=== PATIENT | female | born 1960 | race Caucasian/White ===

== ENCOUNTER 2021-11-03 15:18 | Emergency (ER) | payer OTHER, SELFPAY ==
[2021-11-03 16:00] VITALS: BP 134/60; PULSE 45; RESP 17; TEMP 36.1; O2SAT 99; BMI 24.5
--- NOTE | 2021-11-03 17:34 | ED.LOWEXIN ---
HPI - Extremity Injury (Lower) <DEMIAN QuinnP - Last Filed: 11/03/21 18:04> General Chief Complaint: Extremity Injury, Lower Stated Complaint: numb foot right/neuropathy poss DVT Time Seen by Provider: 11/03/21 17:34 Source: patient and family Mode of arrival: Ambulatory History of Present Illness HPI Narrative: This is a 61-year-old female who has a history of type 2 diabetes, most recently her A1c was over 10, recently started on Lantus, NovoLog, and Trulicity for glycemic control, also has a history of bipolar and is adequately controlled on medications, she states that she sees Dr. Fabian from Psychiatry. Patient is pleasant, states that this morning she had numbness in her right foot, was concerned it was neuropathy, states that it took approximately 30 minutes but then her symptoms fully went away. She states that she used to have neuropathy in her extremities but it went away for a long period of time, the 1st time it came back was this morning. She declines any symptoms currently, denies any pain, denies any weakness with dorsiflexion or plantar extension, is able to wiggle her toes, denies any wounds on her feet, denies any significant hyperglycemia recently. Related Data Home Medications Medication Instructions Recorded Confirmed aspirin 81 mg tablet,delayed 81 mg PO DAILY 05/10/19 08/10/21 release dulaglutide 1.5 mg/0.5 mL mg SUBCUT QWEEK ml 05/10/19 08/10/21 subcutaneous pen injector insulin glargine 100 unit/mL (3 60 unit SUBCUT BID ml 05/10/19 08/10/21 mL) subcutaneous pen (Lantus Solostar U-100 Insulin) Previous Rx's Medication Instructions Recorded eszopiclone 2 mg tablet 2 mg PO BEDTIME PRN #10 tab 06/19/21 citalopram 20 mg tablet 20 mg PO DAILY #30 tab 08/10/21 lithium carbonate 450 mg 450 mg PO BEDTIME #30 tab 08/10/21 tablet,extended release risperidone 3 mg tablet 3 mg PO BEDTIME #30 tab 08/10/21 ziprasidone HCl 60 mg capsule 60 mg PO QPM #30 cap 08/10/21 Allergies Allergy/AdvReac Type Severity Reaction Status Date / Time haloperidol [From Haldol] AdvReac Intermediate Headache Verified 08/10/21 16:05 lisinopril AdvReac Intermediate cough Verified 08/10/21 16:05 zolpidem [From Ambien] AdvReac Intermediate nightmares Verified 08/10/21 16:05 hydroxyzine AdvReac Mild activation Verified 08/10/21 16:05 meperidine [From Demerol] AdvReac Mild dizziness, Verified 08/10/21 16:05 nausea, vomitting Review of Systems <MANUEL Quinn - Last Filed: 11/03/21 18:04> Review of Systems Narrative: General: denies fever, chills Head/Neck: denies headache, neck pain Eyes: denies visual changes, eye pain Cardio: denies chest pain, palpitations Respiratory: denies shortness of breath, cough GI: denies abdominal pain, nausea, vomiting, or diarrhea : denies dysuria, hematuria or flank pain MSK: denies new joint pain, muscle weakness or swelling Skin: denies rash, itching or wound Neuro: denies numbness, tingling, dizziness Patient History <MANUEL Quinn - Last Filed: 11/03/21 18:04> Medical History Bipolar 1 disorder, depressed, mild Bipolar disorder, current episode manic severe with psychotic features Drug-induced long QT syndrome Type 2 diabetes mellitus Social History Smoking Status: Former smoker Smoking Status: Former smoker Substance Use Type: does not use Exam <MANUEL Quinn - Last Filed: 11/03/21 18:04> Narrative Exam Narrative: Independently reviewed vitals signs and nursing notes. General: cooperative, comfortable, in no acute distress, well groomed Head: atraumatic, symmetrical facial expressions Neck: supple Eyes: equal round and reactive, EOMI, conjunctiva normal Nose: nares patent, no rhinorrhea Mouth/Throat: moist mucus membranes Cardiovascular: regular rate and rhythm, no peripheral edema, warm extremities Respiratory: normal effort, able to speak in complete sentences, no audible wheezing, stridor, or rales. No retractions or tachypnea. GI: abdomen soft, nontender to palpation, nondistended, no masses, no exquisite tenderness with exam, without guarding or rebound. MSK: moves all extremities, neurovascularly intact, no weakness, normal tone Skin: brisk capillary refill, no rash, no erythema, patient's feet are dry, toenails are slightly long, no open wounds, a small callus is present on the dorsum of her foot underneath her flip flops line, no open wound, excoriation, tenderness, or edema. Currently, patient does not endorse any numbness with palpation to the plantar surface of her foot in all areas. With palpation Neuro: normal speech and cognition, A&O x3 Psych: mental status is grossly normal, congruent mood, normal affect, pleasant and cooperative Initial Vital Signs Initial Vital Signs: Vital Signs Temperature 97 F L 11/03/21 16:00 Pulse Rate 45 L 11/03/21 16:00 Respiratory Rate 17 11/03/21 16:00 Blood Pressure 134/60 11/03/21 16:00 Pulse Oximetry 99 11/03/21 16:00 <Jim Villa DO - Last Filed: 11/03/21 18:07> Initial Vital Signs Initial Vital Signs: Vital Signs Temperature 97 F L 11/03/21 16:00 Pulse Rate 45 L 11/03/21 16:00 Respiratory Rate 17 11/03/21 16:00 Blood Pressure 134/60 11/03/21 16:00 Pulse Oximetry 99 11/03/21 16:00 Course <MANUEL Quinn - Last Filed: 11/03/21 18:04> Vital Signs Vital signs: Vital Signs - 8 hr 11/03/21 16:00 11/03/21 17:55 Temperature 97 F L 97 F L Pulse Rate 45 L 80 Respiratory Rate 17 18 Blood Pressure 134/60 132/74 Pulse Oximetry 99 98 <Jim Villa DO - Last Filed: 11/03/21 18:07> Vital Signs Vital signs: Vital Signs - 8 hr 11/03/21 16:00 11/03/21 17:55 Temperature 97 F L 97 F L Pulse Rate 45 L 80 Respiratory Rate 17 18 Blood Pressure 134/60 132/74 Pulse Oximetry 99 98 MDM - Extremity Injury (Lower) <MANUEL Quinn - Last Filed: 06/04/22 18:04> MDM Narrative Medical decision making narrative: This is a 61-year-old female type 2 diabetic who is insulin-dependent and also on Trulicity who presents to the emergency department for concern about numbness in her right foot which happened this morning, and has since resolved. Patient also has a history of bipolar and is currently in remission, she is on multiple antipsychotics but is stable on her medications currently. Patient reports that her Hb A1c was over 10, she has since been started on Lantus, NovoLog, and Trulicity and she is checking her blood sugar every day, avoiding carbs, and trying to improve her glycemic control. Patient denies any numbness or neuropathy symptoms at this time, she denies any pain, she has an upcoming appointment with Dr. Small from Podiatry, states that she will follow up with him accordingly. Patient understands to follow-up with Dr. Small, continue check her blood sugar, she denies any symptoms at this time. Patient is appropriate and amenable to discharge home. Vital signs are stable on repeat examination is unremarkable. Patient has been informed of results. Patient has been given strict return to ER precautions for any new or worsening symptoms. Patient understands to follow up closely with outpatient providers as instructed. Patient understands plan and agrees to discharge home. All questions and concerns answered at this time. Discharge Plan Departure Patient Disposition: Home Clinical Impression: Type 2 diabetes mellitus with peripheral neuropathy Instructions: DI for Diabetic Neuropathy, DI for Peripheral Neuropathy Activity Restrictions/Additional Instructions: *You have been diagnosed with peripheral neuropathy most likely related to your diabetes. I am proud of you for starting to take good care of your elevated blood sugars, please continue to check her blood sugar at least 4 times a day and to keep your blood sugar within normal ranges, continue to avoid carbs as you transition to a new diet to help reduce your A1c. Please take your medications as prescribed, there are other medications that are used for neuropathy but since yours is intermittent it might not be as progressive. Please follow-up with Dr. Small at your scheduled podiatry appointment, please let him know about your neuropathy episode, keep track of this happens again. Thank you for trusting us with your care, return for any new or worsening conditions. *What to do: *Please continue to take your regular medications as directed. [ ] New medication prescriptions sent to your pharmacy: [ ] [ ] New medication written as a paper prescription [x ] No new medications given *Please follow up with your primary care provider in 2-3 days, call for an appointment. Let them know you were seen in the Emergency Department and that we asked that you be seen for follow-up. We will electronically transmit a record of today's note if your PCP is in our system *If you do not have a primary care provider please contact [phone] to establish care with one of the [facility] primary care providers. *Return to Emergency Department if you should have any new, worsening or concerning symptoms, such as [fever greater than 101F, chills, worsening pain, persistent vomiting or other bothersome symptoms] Prescriptions: No Action aspirin 81 mg tablet,delayed release (DR/EC) 81 mg PO DAILY 0RF Trulicity 1.5 mg/0.5 mL pen injector SUBCUT QWEEK 0RF Lantus Solostar U-100 Insulin 100 unit/mL (3 mL) insulin pen 60 unit SUBCUT BID 0RF citalopram 20 mg tablet 20 mg PO DAILY Qty: 30 5RF lithium carbonate 450 mg tablet extended release 450 mg PO BEDTIME Qty: 30 5RF risperidone 3 mg tablet 3 mg PO BEDTIME Qty: 30 5RF ziprasidone HCl 60 mg capsule 60 mg PO QPM Qty: 30 5RF eszopiclone 2 mg tablet 2 mg PO BEDTIME PRN (Reason: insomnia) Qty: 10 2RF Referrals: Jorge Small, G[facility] [Physician] - Visit Report Forms: Patient Portal/API <Jim Villa, DO - Last Filed: 11/03/21 18:07> [facility] ED [facility]ending [facility]: Dr Villa Co-Sign Statement: I was available for consultation during this patient's emergency department visit. This chart is signed by myself for administrative purposes only. I did not have direct contact with this patient during this visit. They were seen independently by the APC.
[2021-11-03 17:55] VITALS: BP 132/74; PULSE 80; RESP 18; TEMP 36.1; O2SAT 98
== END 2021-11-03 17:55 | disposition home or self-care (01) ==
PROVIDERS: Emergency Provider Nurse Practitioner Critical Care Medicine
DX: E11.42 Type 2 diabetes mellitus with diabetic polyneuropathy (principal); Z79.4 Long term (current) use of insulin
CPT/HCPCS: 99281

== ENCOUNTER 2022-01-16 10:37 | Emergency (ER) | payer OTHER, SELFPAY ==
[2022-01-16] VITALS (8 sets, daily range): BP systolic 123–161; BP diastolic 65–77; PULSE 58–73; RESP 20; TEMP 36.2; O2SAT 94–100; BMI 23.8
[2022-01-16 12:11] LABS: Add Manual Diff / Slide Review NO; Basophils Absolute Auto 0 /uL (0-100); Basophils Percent Auto 0.4 % (0-2); Eosinophils Absolute Auto 100 /uL (0-450); Eosinophils Percent Auto 1.3 % (2-4); Hematocrit 44.7 % (36-46); Hemoglobin 15.2 g/dL (12.0-16.0); Lymphocytes Absolute Auto 1000 /uL (1100-4500); Mean Corpuscular Hemoglobin 28.3 PG (26-34); Mean Corpuscular Volume 83.3 fL (80-100); Monocytes Absolute Auto 500 /uL (0-900); Monocytes Percent Auto 5.5 % (3-14); Neutrophils Absolute Auto 6600 /uL (1500-7000); Neutrophils Percent Auto 80.8 % (50-75); Platelet Count 163 X10^3/uL (150-400); Red Blood Cell Count 5.37 X10^6/uL (4.0-5.2); Red Cell Distribution Width 14.7 % (11.6-14.8); White Blood Cell Count 8.2 X10^3/uL (4.5-11.0)
[2022-01-16 12:19] LABS: Appearance Urine UA CLEAR; Bilirubin Urine UA NEGATIVE (NEGATIVE); Color Urine UA YELLOW; Glucose Urine UA 1+ g/dL (Negative); Ketones Urine UA TRACE (NEGATIVE); Leukocyte Esterase Urine UA NEGATIVE (NEGATIVE); Nitrite Urine UA NEGATIVE (Negative); Occult Blood Urine UA NEGATIVE (Negative); Protein Urine UA 2+ (Negative); Specific Gravity Urine UA 1.025 (1.000-1.035); Urobilinogen Urine UA 0.2 E.U./dL (0.2)
[2022-01-16 12:26] LABS: Alanine Aminotransferase 19 IU/L (<35); Albumin 4.6 g/dL (3.5-5.0); Albumin Globulin Ratio 1.4 (1.0-2.8); Alkaline Phosphatase 106 U/L (38-126); Aspartate Aminotransferase 23 IU/L (14-36); BUN Creatinine Ratio 33.3 (6-22); Bilirubin Total 0.5 mg/dL (0.2-1.3); Blood Urea Nitrogen 20 mg/dL (7-17); Calcium 9.4 mg/dL (8.4-10.2); Carbon Dioxide 25 mmol/L (22-32); Chloride 102 mmol/L (98-107); Estimated Glomerular Filt Rate > 60 mL/min (>60); Globulin 3.4 g/dL (1.7-4.1); Glucose 223 mg/dL (80-110); HEMOLYSIS < 15 (0-50); Lipase 140 U/L (23-300); Potassium 4.2 mmol/L (3.4-5.1); Sodium 137 mmol/L (137-145)
[2022-01-16 12:28] LABS: RBC Urine 0-1/HPF (0-5/HPF); Squamous Epithelial Cell Urine 0-1 /HPF (0-5/HPF); WBC Urine 1-5/HPF (0-5/HPF)
[2022-01-16 12:29] LABS: Bacteria Urine Occasional (0-1); Culture Indicated Urine Specimen Cultured; Mucus Urine 1+ (Negative)
--- NOTE | 2022-01-16 12:29 | ED_ITS ---
HPI - Abdominal Pain General Chief Complaint: Abdominal Pain Stated Complaint: Left side abd pain Time Seen by Provider: 01/16/22 11:47 Source: patient Mode of arrival: Family Vehicle History of Present Illness HPI narrative: Patient is a 61-year-old female history of diabetes bipolar presenting today with left lower quadrant pain. She said it started last night. No nausea vomiting or fever. She denies any flank pain. No prior history of diverticulitis. Onset (ago): day(s) Pain Consistency: constant Location: LLQ Severity: moderate Quality: stabbing Radiation: none Relieving factors: nothing Related Data Home Medications Medication Instructions Recorded Confirmed aspirin 81 mg tablet,delayed 81 mg PO DAILY 05/10/19 08/10/21 release dulaglutide 1.5 mg/0.5 mL mg SUBCUT QWEEK 05/10/19 08/10/21 subcutaneous pen injector insulin glargine 100 unit/mL (3 60 unit SUBCUT BID 05/10/19 08/10/21 mL) subcutaneous pen (Lantus Solostar U-100 Insulin) Previous Rx's Medication Instructions Recorded cephalexin 500 mg capsule 500 mg PO BID 3 days #6 caps 01/16/22 citalopram 20 mg tablet 20 mg PO DAILY 30 days #30 tabs 01/16/22 eszopiclone 2 mg tablet 2 mg PO BEDTIME PRN insomnia 30 01/16/22 days #10 tabs lithium carbonate 450 mg 450 mg PO BEDTIME 30 days #30 tabs 01/16/22 tablet,extended release risperidone 3 mg tablet 3 mg PO BEDTIME 30 days #30 tabs 01/16/22 ziprasidone HCl 60 mg capsule 60 mg PO QPM 30 days #30 caps 01/16/22 Allergies Allergy/AdvReac Type Severity Reaction Status Date / Time haloperidol [From Haldol] AdvReac Intermediate Headache Verified 01/16/22 10:58 lisinopril AdvReac Intermediate cough Verified 01/16/22 10:58 zolpidem [From Ambien] AdvReac Intermediate nightmares Verified 01/16/22 10:58 hydroxyzine AdvReac Mild activation Verified 01/16/22 10:58 meperidine [From Demerol] AdvReac Mild dizziness, Verified 01/16/22 10:58 nausea, vomitting Review of Systems Review of Systems Narrative: GENERAL: Denies chills, fatigue, malaise, fever, sweats, travel HEENT: Denies sinus pain, ear pain, sore throat, difficulty swallowing, neck pain RESPIRATORY: Denies dyspnea, cough, wheezing, hemoptysis, sputum. CARDIOVASCULAR: Denies chest pain, palpitations, orthopnea, edema GASTROINTESTINAL: See HPI : Denies dysuria, frequency, incontinence, hematuria, urinary retention, flank pain. MUSCULOSKELETAL: Denies weakness, joint pain, or bony pain SKIN: No rash, no erythema, no pruritus NEUROLOGIC: Denies weakness, dizziness, headache, numbness, change in speech, confusion PSYCHIATRIC: No concerning psychosocial issues. 12 point review of systems is negative except for those stated above and HPI Patient History Medical History Bipolar 1 disorder, depressed, mild Bipolar disorder, current episode manic severe with psychotic features Drug-induced long QT syndrome Type 2 diabetes mellitus Social History Smoking Status: Former smoker Smoking Status: Former smoker tobacco type: cigarettes alcohol intake frequency: 0-2 drinks per day Substance Use Type: does not use Exam Initial Vital Signs Initial Vital Signs: Vital Signs Temperature 97.2 F L 01/16/22 10:59 Pulse Rate 58 L 01/16/22 10:59 Respiratory Rate 20 01/16/22 10:59 Blood Pressure 142/67 H 01/16/22 10:59 Pulse Oximetry 99 01/16/22 10:59 Oxygen Delivery Method 01/16/22 10:59 GENERAL: Alert pleasant 61-year-old female and in no acute distress. HEENT: Head atraumatic,EOMI, pupils reactive, face symmetric, moist mucous membranes CARDIOVASCULAR: Regular rate and rhythm without murmurs, rubs or gallops. RESPIRATORY: Breath sounds equal bilaterally, no wheezes rales or rhonchi. ABDOMEN: Soft, left lower quadrant pain no guarding no rebound : No CVA tenderness EXTREMITIES: Normal range of motion, no clubbing or edema. Neurovascularly intact NEUROLOGICAL: Alert and oriented x4 SKIN: Warm, dry, no laceration, no petechiae, no rashes or lesions. Course Orders Ordered: ED Orders 01/16/22 12:31 CT abdomen pelvis wo con Stat 01/16/22 12:53 EKG-12 Lead Stat Discontinued Medications Ketorolac Tromethamine (Ketorolac 30 Mg/Ml Vial) 15 mg IV NOW ONE Stop: 01/16/22 13:05 Last Admin: 01/16/22 13:12 Dose: 15 mg Documented By: PIETRO Vital Signs Vital signs: Vital Signs - 8 hr 01/16/22 13:16 01/16/22 13:17 01/16/22 13:17 Pulse Rate 65 65 Blood Pressure 161/76 H Pulse Oximetry 94 99 01/16/22 13:30 01/16/22 13:30 Pulse Rate 73 Blood Pressure 156/77 H Pulse Oximetry 94 MDM - Abdominal Pain Lab Data Result diagrams: 01/16/22 12:03 01/16/22 12:03 Labs: Lab Results 01/16/22 01/16/22 01/16/22 Range/Units 12:03 12:03 12:08 WBC 8.2 (4.5-11.0) X10^3/uL RBC 5.37 H (4.0-5.2) X10^6/uL Hgb 15.2 (12.0-16.0) g/dL Hct 44.7 (36-46) % MCV 83.3 (80-100) fL MCH 28.3 (26-34) PG MCHC 34.0 (30-36) % RDW 14.7 (11.6-14.8) % Plt Count 163 (150-400) X10^3/uL Neut % (Auto) 80.8 H (50-75) % Lymph % (Auto) 12.0 L (25-40) % [place] % (Auto) 5.5 (3-14) % Eos % (Auto) 1.3 L (2-4) % Baso % (Auto) 0.4 (0-2) % Neut # (Auto) 6600 (9280-0856) /uL Lymph # (Auto) 1000 L (8296-9922) /uL [place] # (Auto) 500 (0-900) /uL Eos # (Auto) 100 (0-450) /uL Baso # (Auto) 0 (0-100) /uL Sodium 137 (137-145) mmol/L Potassium 4.2 (3.4-5.1) mmol/L Chloride 102 (98-107) mmol/L Carbon Dioxide 25 (22-32) mmol/L BUN 20 H (7-17) mg/dL Creatinine 0.60 (0.52-1.04) mg/dL Estimated GFR > 60 (>60) mL/min BUN/Creatinine Ratio 33.3 H (6-22) Glucose 223 H (80-110) mg/dL Calcium 9.4 (8.4-10.2) mg/dL Total Bilirubin 0.5 (0.2-1.3) mg/dL AST 23 (14-36) IU/L ALT 19 (<35) IU/L Alkaline Phosphatase 106 (38-126) U/L Total Protein 8.0 (6.3-8.2) g/dL Albumin 4.6 (3.5-5.0) g/dL Globulin 3.4 (1.7-4.1) g/dL Albumin/Globulin Ratio 1.4 (1.0-2.8) Lipase 140 (23-300) U/L Urine Color Yellow Urine Appearance Clear Urine pH 5.0 (4.5-8.0) Ur Specific [place] 1.025 (1.000-1.035) Urine Protein 2+ H (Negative) Urine Glucose (UA) 1+ H (Negative) g/dL Urine Ketones Trace H (NEGATIVE) Urine Occult Blood Negative (Negative) Urine Nitrate Negative (Negative) Urine Bilirubin Negative (NEGATIVE) Urine Urobilinogen 0.2 (0.2) E.U./dL Ur Leukocyte Esterase Negative (NEGATIVE) Urine RBC 0-1/hpf (0-5/HPF) Urine WBC 1-5/hpf (0-5/HPF) Ur Squamous Epith Cells 0-1 /hpf (0-5/HPF) Urine Bacteria Occasional (0-1) (None) Urine Mucus 1+ H (Negative) Ur Culture Indicated? Specimen cultured SARS-CoV-2 (PCR) (Negative) 01/16/22 Range/Units 12:08 WBC (4.5-11.0) X10^3/uL RBC (4.0-5.2) X10^6/uL Hgb (12.0-16.0) g/dL Hct (36-46) % MCV (80-100) fL MCH (26-34) PG MCHC (30-36) % RDW (11.6-14.8) % Plt Count (150-400) X10^3/uL Neut % (Auto) (50-75) % Lymph % (Auto) (25-40) % Hamb[place] % (Auto) (3-14) % Eos % (Auto) (2-4) % Baso % (Auto) (0-2) % Neut # (Auto) (6238-4098) /uL Lymph # (Auto) (3126-8048) /uL Hamblen # (Auto) (0-900) /uL Eos # (Auto) (0-450) /uL Baso # (Auto) (0-100) /uL Sodium (137-145) mmol/L Potassium (3.4-5.1) mmol/L Chloride (98-107) mmol/L Carbon Dioxide (22-32) mmol/L BUN (7-17) mg/dL Creatinine (0.52-1.04) mg/dL Estimated GFR (>60) mL/min BUN/Creatinine Ratio (6-22) Glucose (80-110) mg/dL Calcium (8.4-10.2) mg/dL Total Bilirubin (0.2-1.3) mg/dL AST (14-36) IU/L ALT (<35) IU/L Alkaline Phosphatase (38-126) U/L Total Protein (6.3-8.2) g/dL Albumin (3.5-5.0) g/dL Globulin (1.7-4.1) g/dL Albumin/Globulin Ratio (1.0-2.8) Lipase (23-300) U/L Urine Color Urine Appearance Urine pH (4.5-8.0) Ur Specific [place] (1.000-1.035) Urine Protein (Negative) Urine Glucose (UA) (Negative) g/dL Urine Ketones (NEGATIVE) Urine Occult Blood (Negative) Urine Nitrate (Negative) Urine Bilirubin (NEGATIVE) Urine Urobilinogen (0.2) E.U./dL Ur Leukocyte Esterase (NEGATIVE) Urine RBC (0-5/HPF) Urine WBC (0-5/HPF) Ur Squamous Epith Cells (0-5/HPF) Urine Bacteria (None) Urine Mucus (Negative) Ur Culture Indicated? SARS-CoV-2 (PCR) Negative (Negative) Imaging Data CT scan - abdomen/pelvis: Radiologist's Impression: CT Scan Report Signed Patient: Krupa Aragon MR#: [id number] : 1960 Acct:[id number] Age/Sex: 61 / F Date of Service: 01/16/22 Loc: ED Accession Number: [id number] ?? Procedure: CT abdomen pelvis wo con Ordering Provider: Jolynn Mcguire D.O. PROCEDURE:? CT ABDOMEN PELVIS WO CON ? INDICATIONS:? llq pain ? TECHNIQUE:? Noncontrast 5 mm thick sections acquired from the diaphragms to the symphysis.? 5 mm coronal and sagittal reformats were then performed.? For radiation dose reduction, the following was used:? automated exposure control, adjustment of mA and/or kV according to patient size.? ? COMPARISON:? None. ? FINDINGS:? Image quality:? Excellent.? ? ABDOMEN:? Lung bases:? Lung bases are clear.? Heart size is normal.? ? Solid organs:? The liver is unremarkable.? Gallbladder is unremarkable.? No biliary ductal dilation.? Pancreas, spleen, adrenals are unremarkable.? Right superior pole simple appearing renal cysts.? No hydronephrosis. ? Peritoneum and bowel:? Bowel is nonobstructed.? The sigmoid is redundant.? No convincing inflammatory findings.? Normal appendix.? No ascites. ? Nodes and vessels:? No retroperitoneal or mesenteric adenopathy by size criteria.? Aorta and inferior vena cava are normal in caliber.? ? Miscellaneous:? No ventral hernias.? ? ? PELVIS:? Genitourinary:? Bladder is underdistended, limiting evaluation. ? Miscellaneous:? No inguinal hernias or adenopathy.? ? Bones:? Lumbosacral spondylosis without acute or suspicious osseous abnormality. ? IMPRESSION:? No convincing evidence of bowel inflammation.? No bowel obstruction.? No acute abdominopelvic pathology.? Incidental findings as noted above. ? ? Dictated by: Ray Lipscomb M.D. on 01/16/2022 at 13:06 ? ECG Data Interpretation: Normal sinus rhythm rate 68, CA 160, QRS 76 QTC 442 artifact noted no obvious ST changes no priors to compare MDM Narrative Medical decision making narrative: Patient is having some left lower quadrant pain. CT does not show any sort of abnormality blood work is overall reassuring. She has occasional bacteria in her urine which suggesting possible UTI my knee, may be causing some of her pain. Will start her on antibiotics for 3 days for a mild UTI. She overall is not septic. Discharge Plan Departure Patient Disposition: Home Clinical Impression: UTI (urinary tract infection) Instructions: DI for Urinary Tract Infection (UTI) Activity Restrictions/Additional Instructions: *You have been diagnosed with UTI *What to do: At this time if CT scan is negative in your blood work looks good *Continue to take medications as directed Keflex 500 mg twice a day for 3 days --> [facility] [place] *Follow up with your primary care provider in 2-3 days or call [phone] *Return to ER if you should have increasing pain fever persistent vomiting or any new, worsening or concerning symptoms Prescriptions: New cephalexin 500 mg capsule 500 mg PO BID 3 Days Qty: 6 0RF No Action aspirin 81 mg tablet,delayed release (DR/EC) 81 mg PO DAILY Trulicity 1.5 mg/0.5 mL pen injector SUBCUT QWEEK Lantus Solostar U-100 Insulin 100 unit/mL (3 mL) insulin pen 60 unit SUBCUT BID citalopram 20 mg tablet 20 mg PO DAILY 30 Days Qty: 30 5RF eszopiclone 2 mg tablet 2 mg PO BEDTIME PRN (Reason: insomnia) 30 Days Qty: 10 2RF risperidone 3 mg tablet 3 mg PO BEDTIME 30 Days Qty: 30 5RF ziprasidone HCl 60 mg capsule 60 mg PO QPM 30 Days Qty: 30 5RF lithium carbonate 450 mg tablet extended release 450 mg PO BEDTIME 30 Days Qty: 30 5RF Referrals: ProviderChu [Primary Care Provider] - Visit Report Forms: Patient Portal/API
--- NOTE | 2022-01-16 12:31 | DI.CT.S_ITS ---
PROCEDURE: CT ABDOMEN PELVIS WO CON INDICATIONS: llq pain TECHNIQUE: Noncontrast 5 mm thick sections acquired from the diaphragms to the symphysis. 5 mm coronal and sagittal reformats were then performed. For radiation dose reduction, the following was used: automated exposure control, adjustment of mA and/or kV according to patient size. COMPARISON: None. FINDINGS: Image quality: Excellent. ABDOMEN: Lung bases: Lung bases are clear. Heart size is normal. Solid organs: The liver is unremarkable. Gallbladder is unremarkable. No biliary ductal dilation. Pancreas, spleen, adrenals are unremarkable. Right superior pole simple appearing renal cysts. No hydronephrosis. Peritoneum and bowel: Bowel is nonobstructed. The sigmoid is redundant. No convincing inflammatory findings. Normal appendix. No ascites. Nodes and vessels: No retroperitoneal or mesenteric adenopathy by size criteria. Aorta and inferior vena cava are normal in caliber. Miscellaneous: No ventral hernias. PELVIS: Genitourinary: Bladder is underdistended, limiting evaluation. Miscellaneous: No inguinal hernias or adenopathy. Bones: Lumbosacral spondylosis without acute or suspicious osseous abnormality. IMPRESSION: No convincing evidence of bowel inflammation. No bowel obstruction. No acute abdominopelvic pathology. Incidental findings as noted above. Dictated by: Ray Lipscomb M.D. on 01/16/2022 at 13:06 Approved by: Ray Lipscomb M.D. on 01/16/2022 at 13:11
[2022-01-16 12:33] LABS: COVID19 -Nasal RAPID Negative (Negative)
[2022-01-16] MEDS: KETOROLAC 30 MG/ML VIAL 15 MG IV (13:12)
== END 2022-01-16 13:39 | disposition home or self-care (01) ==
PROVIDERS: Emergency Provider Emergency Medicine
DX: N39.0 Urinary tract infection, site not specified (principal); Z20.822 Contact with and (suspected) exposure to COVID-19
CPT/HCPCS: 36415; 74176; 80053; 81001; 83690; 85025; 87086; 87635; 93005; 93010; 96374; 99284; C9803; J1885

== ENCOUNTER 2023-10-30 22:54 | Emergency (ER) | payer MEDICARE, OTHER, SELFPAY ==
[2023-10-30 22:57] VITALS: BP 149/70; PULSE 71; RESP 16; TEMP 36.6; O2SAT 100; BMI 25.1
--- NOTE | 2023-10-30 23:30 | ED_ITS ---
HPI - Recheck/Abnormal Lab/Rx General Chief Complaint: Recheck/Abnormal Lab/Rx Stated Complaint: Pacemaker feels like vibrating Time Seen by Provider: 10/30/23 22:59 Source: EMS Mode of arrival: EMS History of Present Illness HPI narrative: 63-year-old female with history of bradycardia status post pacemaker placement 10/20/[address] Salazar of [facility] cardiology presents by EMS from home for possible pacemaker problem. Patient states that this evening while she was out or it felt like her pacemaker was ?vibrating? and malfunctioning. She states that earlier this week she had a nurse visit where her pacemaker leads were check and the device was interrogated and she was told that everything was normal. Patient states that she currently has no symptoms. Related Data Home Medications Medication Instructions Recorded Confirmed aspirin 81 mg tablet,delayed 81 mg PO DAILY 05/10/19 09/24/22 release dulaglutide 1.5 mg/0.5 mL mg SUBCUT QWEEK 05/10/19 09/24/22 subcutaneous pen injector insulin glargine 100 unit/mL (3 60 unit SUBCUT BID 05/10/19 09/24/22 mL) subcutaneous pen (Lantus Solostar U-100 Insulin) Previous Rx's Medication Instructions Recorded citalopram 20 mg tablet 20 mg PO DAILY 30 days #30 tabs 01/16/22 eszopiclone 2 mg tablet 2 mg PO BEDTIME #30 tabs 10/06/23 lithium carbonate 300 mg 300 mg PO BEDTIME #30 tabs 10/06/23 tablet,extended release ziprasidone HCl 20 mg capsule 20 mg PO BID #60 caps 10/06/23 Allergies Allergy/AdvReac Type Severity Reaction Status Date / Time haloperidol [From Haldol] AdvReac Intermediate Headache Verified 10/30/23 23:00 lisinopril AdvReac Intermediate cough Verified 10/30/23 23:00 zolpidem [From Ambien] AdvReac Intermediate nightmares Verified 10/30/23 23:00 hydroxyzine AdvReac Mild activation Verified 10/30/23 23:00 meperidine [From Demerol] AdvReac Mild dizziness, Verified 10/30/23 23:00 nausea, vomitting Patient History Medical History (Updated 10/30/23 @ 23:57 by Rita Kwong MD) Drug-induced long QT syndrome Bipolar disorder in full remission Bipolar 1 disorder, depressed, mild Type 2 diabetes mellitus Bipolar disorder, current episode manic severe with psychotic features Social History Smoking Status: Former smoker Smoking Status: Former smoker tobacco type: cigarettes alcohol intake frequency: 0-2 drinks per day Substance Use Type: does not use Exam Initial Vital Signs Initial Vital Signs: Vital Signs Temperature 98 F 10/30/23 22:57 Pulse Rate 71 10/30/23 22:57 Respiratory Rate 16 10/30/23 22:57 Blood Pressure 149/70 H 10/30/23 22:57 Pulse Oximetry 100 10/30/23 22:57 Oxygen Delivery Method Room Air 10/30/23 22:57 Course Orders Ordered: ED Orders 10/30/23 23:23 Urinalysis and Microscopic Stat Urine Culture Stat 10/30/23 23:30 Chest [XR chest 1V] Stat Vital Signs Vital signs: Vital Signs - 8 hr 10/30/23 22:57 10/31/23 00:10 10/31/23 00:30 Temperature 98 F Pulse Rate 71 70 69 Respiratory Rate 16 22 18 Blood Pressure 149/70 H Pulse Oximetry 100 99 Oxygen Delivery Method Room Air 10/31/23 01:03 Temperature Pulse Rate Respiratory Rate Blood Pressure 173/74 H Pulse Oximetry Oxygen Delivery Method Room Air MDM - Recheck/Abnormal Lab/Rx Differential Diagnosis Differential diagnosis: Likely encounter for medication refill, encounter for wound recheck and encounter for recheck of burn Lab Data Labs: Lab Results 10/30/23 Range/Units 23:23 Urine Color Yellow Urine Appearance Clear Urine pH 6.0 (4.5-8.0) Ur Specific Fults 1.020 (1.000-1.035) Urine Protein 2+ H (Negative) Urine Glucose (UA) Negative (Negative) g/dL Urine Ketones Negative (NEGATIVE) Urine Occult Blood Negative (Negative) Urine Nitrate Negative (Negative) Urine Bilirubin Negative (NEGATIVE) Urine Urobilinogen 1.0 (0.2) E.U./dL Ur Leukocyte Esterase Trace H (NEGATIVE) Urine RBC None seen (0-5/HPF) Urine WBC 1-5/hpf (0-5/HPF) Ur Squamous Epith Cells 0-1 /hpf (0-5/HPF) Urine Bacteria Occasional (0-1) (None) Ur Culture Indicated? Specimen cultured Vol Urine Centrifuged 10ml (spun) Urine Dip Bedside Urine Glucose Negative Bedside Urine Bilirubin - Negative Bedside Urine Ketone - Negative Urine Specific Fults 1.015 Bedside Urine Occult Blood - Negative Bedside Urine pH 6.0 Bedside Urine Protein + 30 Bedside Urine Urobilinogen - Negative Bedside Urine Nitrite - Negative Bedside Urine Leukocytes - Negative Esterase MDM Narrative Medical decision making narrative: Patient presenting because of the sensation that her pacemaker is vibrating. Currently asymptomatic. Pacemaker insertion site in left chest is clean, dry, intact, there was no fluctuance, there was no abnormal sensation coming from this pocket. Pacer interrogated, no events recorded. Chest x-ray shows appropriate placement of pacer leads. EKG sinus rhythm without concerning findings. Patient relieved to know that everything to be functioning normally. She was counseled to follow up with her EP doctor as scheduled. ED return precautions discussed at bedside. Patient expressed understanding of the plan and is in agreement at this time. All questions answered at the time of discharge. Discharge Plan Departure Patient Disposition: Home Clinical Impression: Biventricular pacemaker check Instructions: DI for Pacemaker Insertion Activity Restrictions/Additional Instructions: Your pacemaker interrogation did not show any abnormalities. Your chest x-ray showed normal lead placement. 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 Prescriptions: No Action aspirin 81 mg tablet,delayed release (DR/EC) 81 mg PO DAILY Trulicity 1.5 mg/0.5 mL pen injector SUBCUT QWEEK Lantus Solostar U-100 Insulin 100 unit/mL (3 mL) insulin pen 60 unit SUBCUT BID lithium carbonate 300 mg tablet extended release 300 mg PO BEDTIME Qty: 30 3RF ziprasidone HCl 20 mg capsule 20 mg PO BID Qty: 60 3RF Rx Instructions: give with food (meal/snack) eszopiclone 2 mg tablet 2 mg PO BEDTIME Qty: 30 0RF citalopram 20 mg tablet 20 mg PO DAILY 30 Days Qty: 30 5RF Hold Instructions: Not currently taking Referrals: Sheila Gaines MD [Primary Care Provider] - Stand Alone Forms: Patient Portal/API
--- NOTE | 2023-10-30 23:30 | DI.RAD.S_ITS ---
PROCEDURE: XR CHEST 1V INDICATIONS: 'pacemaker fluttering', lead check TECHNIQUE: One view of the chest was acquired. COMPARISON: None. FINDINGS: Surgical changes and devices: Left chest wall pacemaker leads are in the region of right atrium and right ventricle. Lungs and pleura: Lungs are clear. No pleural effusions or pneumothorax. Mediastinum: Mediastinal contours appear normal. Heart size is normal. Bones and chest wall: No suspicious bony lesions. Overlying soft tissues appear unremarkable. IMPRESSION: No acute cardiopulmonary pathology. Dictated by: Armando Freeman M.D. on 10/30/2023 at 23:43 Approved by: Armando Freeman M.D. on 10/30/2023 at 23:43
[2023-10-31 00:06] LABS: Appearance Urine UA CLEAR; Bilirubin Urine UA NEGATIVE (NEGATIVE); Color Urine UA YELLOW; Glucose Urine UA NEGATIVE (Negative); Ketones Urine UA NEGATIVE (NEGATIVE); Leukocyte Esterase Urine UA TRACE (NEGATIVE); Nitrite Urine UA NEGATIVE (Negative); Occult Blood Urine UA NEGATIVE (Negative); Protein Urine UA 2+ (Negative)
[2023-10-31 00:10] VITALS: PULSE 70; RESP 22; O2SAT 99
[2023-10-31 00:15] LABS: Bacteria Urine Occasional (0-1); Culture Indicated Urine Specimen Cultured; RBC Urine None Seen (0-5/HPF); Squamous Epithelial Cell Urine 0-1 /HPF (0-5/HPF); Urine Volume 10mL (spun); WBC Urine 1-5/HPF (0-5/HPF)
[2023-10-31 00:30] VITALS: PULSE 69; RESP 18
[2023-10-31 01:03] VITALS: BP 173/74
== END 2023-10-31 01:05 | disposition home or self-care (01) ==
PROVIDERS: Emergency Provider Emergency Medicine; PCP Family Medicine
DX: Z03.89 Encounter for observation for other suspected diseases and conditions ruled out (principal); Z95.0 Presence of cardiac pacemaker
CPT/HCPCS: 71045; 81001; 81003; 87077; 87086; 87186; 93005; 99282; 99283